=== PATIENT | male | born 1960 | race African-American/Black ===

== ENCOUNTER 2017-04-09 14:24 | Emergency (ER) | payer MEDICAID ==
[~2017-04-09] VITALS: Ht 172.7 cm; Wt 68.0 kg
[2017-04-09 15:00] LABS: BASOPHILS % 1.1 % (0.0-2.0); EOSINOPHILS % 1.2 % (0.0-5.0); HEMATOCRIT. 38.9 % (42.0-52.0); HEMOGLOBIN. 12.7 g/dL (14.0-18.0); LYMPHOCYTES % 15.2 % (20.0-50.0); MEAN CORPUSCULAR VOLUME 86.1 fL (80.0-94.0); MEAN PLATELET VOLUME 10.3 fl (7.4-10.4); MONOCYTES % 6.3 % (2.0-8.0); NEUTROPHILS % 76.2 % (40.0-76.0); PLATELET 309 x1000/uL (130-400); RED BLOOD CELL COUNT 4.52 mill/uL (4.7-6.1); RED CELL DISTRIBUTION WIDTH 13.5 % (11.6-14.6)
[2017-04-09 15:04] LABS: BG BASE EXCESS 1.9 mmol/L (-2.0-2.0); BG CARBOXYHEMOGLOBIN 0.6 % (0.5-1.5); BG DEOXYHEMOGLOBIN 0.3 % (0.0-5.0); BG FRACTION INSPIRED OXYGEN 98; BG HCO3 ACT 27.5 mmol/L (22.0-26.0); BG METHEMOGLOBIN 0.5 % (0.0-1.5); BG OXYGEN SATURATION 99.7 % (92.0-98.5); BG OXYHEMOGLOBIN 98.6 % (94.0-97.0); BG PCO2 47.2 mmHg (35.0-45.0); BG PH 7.384 (7.350-7.450); BG PO2 407.9 mmHg (75.0-100.0); BG SAMPLE SITE RIGHT BRACHIAL; BG TOTAL HEMOGLOBIN 13.8 g/dL (12.0-18.0); BG VENT MODE MASK - TRACH
[2017-04-09 15:08] LABS: INR 1.1; PROTHROMBIN TIME 11.4 sec (9.4-11.6)
[2017-04-09 15:14] LABS: CARBON DIOXIDE 29 mEq/L (21-32); CHLORIDE 101 mEq/L (98-107); TROPONIN I < 0.02 ng/mL (0.00-0.04)
[2017-04-09] MEDS ORDERED: IPRATROPIUM/ALBUTEROL 0.5-3(2.5)MG/3ML NEB HHN ONE (15:30)
[2017-04-09] MEDS ORDERED: IPRATROPIUM/ALBUTEROL 0.5-3(2.5)MG/3ML NEB ONE (15:45)
[2017-04-09 20:35] VITALS: BP 136/84
== END 2017-04-09 21:40 ==
LOC: ER 14:42
DX: T17.590A Other foreign object in bronchus causing asphyxiation, initial encounter (principal); R06.03 Acute respiratory distress; R00.0 Tachycardia, unspecified; X58.XXXA Exposure to other specified factors, initial encounter; Y93.89 Activity, other specified; Y92.89 Other specified places as the place of occurrence of the external cause; R94.31 Abnormal electrocardiogram [ECG] [EKG]; J44.9 Chronic obstructive pulmonary disease, unspecified; I10 Essential (primary) hypertension; E11.9 Type 2 diabetes mellitus without complications; E78.00 Pure hypercholesterolemia, unspecified; K21.9 Gastro-esophageal reflux disease without esophagitis; Z86.73 Personal history of transient ischemic attack (TIA), and cerebral infarction without residual deficits; Z88.0 Allergy status to penicillin
CPT/HCPCS: 36415; 36600; 71045; 80053; 82375; 82805; 83880; 84484; 85025; 85610; 85730; 93005; 94640; 99291; J7620

== ENCOUNTER 2019-02-24 14:29 | Inpatient (IN) | payer MEDICAID, OTHER ==
[~2019-02-24] VITALS: Ht 175.3 cm; Wt 94.8 kg
[2019-02-24] VITALS (9 sets, daily range): BP systolic 83–109; BP diastolic 49–62
[2019-02-24] MEDS ORDERED: SODIUM CHLORIDE 0.9% 1,000 ML IV ONE ×2 (14:40→15:30)
[2019-02-24] MEDS ORDERED: LEVOFLOXACIN 750MG PREMIX 150 ML IV ONE (14:45)
[2019-02-24] MEDS ORDERED: VANCOMYCIN 1 G PREMIX 200 ML IV ONE (14:45)
[2019-02-24] MEDS ORDERED: SODIUM BICARBONATE 4% (2.4MEQ) 5ML VIAL IV ONE (15:21)
[2019-02-24] MEDS ORDERED: LIDOCAINE HCL 1% 20ML VIAL (Pyxis) INJ ONE (15:21)
[2019-02-24] MEDS: SODIUM CHLORIDE 0.9% 100 ML IV ONE ×3 (15:30→18:22)
[2019-02-24] MEDS ORDERED: ALBUTEROL (0.083%) 2.5MG/3ML NEB HHN ONE (15:30)
[2019-02-24] MEDS: SODIUM CHLORIDE 0.9% 500 ML IV ONE ×2 (15:30→18:22)
[2019-02-24 15:32] LABS: BG BASE EXCESS 1.3 mmol/L (-2.0-2.0); BG CARBOXYHEMOGLOBIN 0.3 % (0.5-1.5); BG FRACTION INSPIRED OXYGEN 100; BG HCO3 ACT 26.8 mmol/L (22.0-26.0); BG METHEMOGLOBIN 0.2 % (0.0-1.5); BG OXYHEMOGLOBIN 91.5 % (94.0-97.0); BG PCO2 46.4 mmHg (35.0-45.0); BG SAMPLE SITE RIGHT RADIAL; BG TIDAL VOLUME(mL) 500 mL; BG TOTAL HEMOGLOBIN 12.1 g/dL (12.0-18.0); BG VENT MODE VENT - A/C; BG VENT RATE 14 set
[2019-02-24 15:40] LABS: BASOPHILS % 0.6 % (0.0-2.0); EOSINOPHILS % 0.2 % (0.0-5.0); HEMATOCRIT. 35.9 % (42.0-52.0); HEMOGLOBIN. 11.8 g/dL (14.0-18.0); LYMPHOCYTES % 12.1 % (20.0-50.0); MEAN CORPUSCULAR HEMOGLOBIN 27.4 pg (28.0-32.0); MEAN CORPUSCULAR VOLUME 83.4 fL (80.0-94.0); MEAN PLATELET VOLUME 11.6 fl (7.4-10.4); MONOCYTES % 10.9 % (2.0-8.0); NEUTROPHILS % 76.2 % (40.0-76.0); PLATELET 202 x1000/uL (130-400); RED BLOOD CELL COUNT 4.31 mill/uL (4.7-6.1); RED CELL DISTRIBUTION WIDTH 15.7 % (11.6-14.6)
[2019-02-24 15:45] LABS: CHLORIDE 90 mEq/L (98-107)
[2019-02-24 15:50] LABS: INR 1.2; PROTHROMBIN TIME 11.9 sec (9.6-11.0)
[2019-02-24] MEDS ORDERED: IPRATROPIUM/ALBUTEROL 0.5-3(2.5)MG/3ML NEB HHN PRN (17:15)
[2019-02-24] MEDS: SODIUM CHLORIDE 0.9% 1,000 ML IV SCH ×2 (18:10→22:49)
[2019-02-24] MEDS ORDERED: NOREPINEPHRINE 4MG/250ML PMX 250 ML IV PRN (20:45)
[2019-02-24] MEDS: ACETAMINOPHEN 325MG TABLET GT PRN (20:58)
[2019-02-24] MEDS: FAMOTIDINE 20MG/2ML VIAL IV SCH (22:48)
[2019-02-24] MEDS: METOCLOPRAMIDE 10MG/10 ML UDC GT SCH (22:48)
[2019-02-24] MEDS ORDERED: VANCOMYCIN 1 G PREMIX 200 ML IV NR (23:30)
[2019-02-25] VITALS (75 sets, daily range): BP systolic 69–151; BP diastolic 35–93
[2019-02-25] MEDS ORDERED: LIDOCAINE HCL 1% 20ML VIAL (Pyxis) INJ ONE (08:47)
[2019-02-25 08:48] LABS: BASOPHILS % 0.3 % (0.0-2.0); EOSINOPHILS % 0.2 % (0.0-5.0); HEMATOCRIT. 27.8 % (42.0-52.0); HEMOGLOBIN. 9.2 g/dL (14.0-18.0); LYMPHOCYTES % 7.6 % (20.0-50.0); MEAN CORPUSCULAR HEMOGLOBIN 27.5 pg (28.0-32.0); MEAN CORPUSCULAR VOLUME 83.6 fL (80.0-94.0); MONOCYTES % 12.7 % (2.0-8.0); NEUTROPHILS % 79.2 % (40.0-76.0); RED BLOOD CELL COUNT 3.33 mill/uL (4.7-6.1); RED CELL DISTRIBUTION WIDTH 15.6 % (11.6-14.6)
[2019-02-25] MEDS ORDERED: METOCLOPRAMIDE HCL 10MG TABLET GT ONE (09:00)
[2019-02-25 09:08] LABS: PHOSPHORUS 3.4 mg/dL (2.5-4.9)
[2019-02-25] MEDS ORDERED: HEPARIN 1000 UNITS/ML 10ML ONE (09:24)
[2019-02-25 09:26] LABS: BG BASE EXCESS -0.5 mmol/L (-2.0-2.0); BG CARBOXYHEMOGLOBIN 0.2 % (0.5-1.5); BG DEOXYHEMOGLOBIN 1.1 % (0.0-5.0); BG FRACTION INSPIRED OXYGEN 100; BG HCO3 ACT 24.2 mmol/L (22.0-26.0); BG METHEMOGLOBIN 0.3 % (0.0-1.5); BG OXYGEN SATURATION 98.9 % (92.0-98.5); BG OXYHEMOGLOBIN 98.4 % (94.0-97.0); BG PCO2 40.3 mmHg (35.0-45.0); BG PH 7.397 (7.350-7.450); BG PO2 136.4 mmHg (75.0-100.0); BG SAMPLE SITE RIGHT RADIAL; BG TIDAL VOLUME(mL) 500 mL; BG TOTAL HEMOGLOBIN 11.2 g/dL (12.0-18.0); BG VENT MODE VENT - A/C; BG VENT RATE 14 set
[2019-02-25] MEDS: METOCLOPRAMIDE 10MG/10 ML UDC GT SCH ×3 (10:04→18:08)
[2019-02-25] MEDS ORDERED: AZTREONAM 1 G in DEXTROSE 5% WATER 50 ML IV SCH ×2 (10:15→11:00)
[2019-02-25] MEDS ORDERED: PHENYLEPHRINE 20 MG in DEXT 5% WATER 248 ML IV PRN (10:30)
[2019-02-25 10:37] LABS: BG BASE EXCESS 1.5 mmol/L (-2.0-2.0); BG CARBOXYHEMOGLOBIN 0.1 % (0.5-1.5); BG DEOXYHEMOGLOBIN 1.7 % (0.0-5.0); BG FRACTION INSPIRED OXYGEN 100; BG HCO3 ACT 26.5 mmol/L (22.0-26.0); BG METHEMOGLOBIN 0.3 % (0.0-1.5); BG OXYGEN SATURATION 98.3 % (92.0-98.5); BG OXYHEMOGLOBIN 97.9 % (94.0-97.0); BG PCO2 43.3 mmHg (35.0-45.0); BG PH 7.405 (7.350-7.450); BG PO2 117.1 mmHg (75.0-100.0); BG SAMPLE SITE RIGHT RADIAL; BG TIDAL VOLUME(mL) 500 mL; BG TOTAL HEMOGLOBIN 11.4 g/dL (12.0-18.0); BG VENT MODE VENT - A/C; BG VENT RATE 14 set
[2019-02-25] MEDS: METRONIDAZOLE 500 MG PREMIX 100 ML IV SCH ×2 (11:06→18:07)
[2019-02-25] MEDS: MORPHINE SULFATE 2 MG/ML CPJ (NOT FOR IM USE) IV PRN (12:56)
[2019-02-25] MEDS: BUDESONIDE 0.5MG/2ML NEB HHN SCH ×2 (13:21→20:09)
[2019-02-25] MEDS: IPRATROPIUM/ALBUTEROL 0.5-3(2.5)MG/3ML NEB HHN SCH ×2 (13:21→20:08)
[2019-02-25] MEDS ORDERED: HEPARIN SODIUM 1,000 UNIT/1ML VIAL IV SCH (14:15)
[2019-02-25 16:10] LABS: CLARITY URINE CLOUDY (CLEAR); COLOR URINE YELLOW (YELLOW); KETONES URINE NEGATIVE (NEGATIVE); LEUKOCYTE ESTERASE URINE TRACE (NEGATIVE); NITRITE URINE NEGATIVE (NEGATIVE); OCCULT BLOOD URINE 2+ (NEGATIVE); PROTEIN URINE 1+ (NEGATIVE); SPECIFIC GRAVITY URINE 1.016 (1.005-1.030); UROBILINOGEN URINE 0.2 E.U./dL (0.2-1.0)
[2019-02-25] MEDS: AZTREONAM 500MG in DEXTROSE 5% WATER 50ML IV SCH ×2 (16:33→21:00)
[2019-02-25 17:02] LABS: MEAN PLATELET VOLUME 12.4 fl (7.4-10.4); PLATELET 165 x1000/uL (130-400)
[2019-02-25] MEDS: FAMOTIDINE 20MG/2ML VIAL IV SCH (21:00)
[2019-02-26] VITALS (74 sets, daily range): BP systolic 86–137; BP diastolic 43–98
[2019-02-26] MEDS: SODIUM CHLORIDE 0.9% 1,000 ML IV SCH ×2 (00:12→23:00)
[2019-02-26] MEDS: METRONIDAZOLE 500 MG PREMIX 100 ML IV SCH ×2 (01:19→08:52)
[2019-02-26] MEDS: IPRATROPIUM/ALBUTEROL 0.5-3(2.5)MG/3ML NEB HHN SCH ×4 (02:01→20:23)
[2019-02-26] MEDS: NOREPINEPHRINE 16 MG in DEXT 5% WATER 234 ML IV PRN (02:08)
[2019-02-26 05:32] LABS: BASOPHILS % 0.2 % (0.0-2.0); EOSINOPHILS % 0.6 % (0.0-5.0); HEMATOCRIT. 29.6 % (42.0-52.0); HEMOGLOBIN. 9.7 g/dL (14.0-18.0); LYMPHOCYTES % 8.9 % (20.0-50.0); MEAN CORPUSCULAR VOLUME 82.2 fL (80.0-94.0); MEAN PLATELET VOLUME 11.1 fl (7.4-10.4); NEUTROPHILS % 79.3 % (40.0-76.0); PLATELET 214 x1000/uL (130-400)
[2019-02-26 05:35] LABS: CHLORIDE 105 mEq/L (98-107)
[2019-02-26] MEDS: AZTREONAM 500MG in DEXTROSE 5% WATER 50ML IV SCH (05:40)
[2019-02-26] MEDS: ACETYLCYSTEINE 100MG/ML 10% VIAL 4ML INH SCH (08:45)
[2019-02-26] MEDS: METOCLOPRAMIDE 10MG/10 ML UDC GT SCH ×3 (08:52→17:49)
[2019-02-26] MEDS: BUDESONIDE 0.5MG/2ML NEB HHN SCH ×2 (08:55→20:23)
[2019-02-26] MEDS ORDERED: LEVOFLOXACIN 500MG PREMIX 100 ML IV SCH ×2 (09:00→11:00)
[2019-02-26] MEDS ORDERED: POTASSIUM PHOS,M-BASIC-D-BASIC 20 MMOL in DEXT 5% WATER 243.3333 ML IV SCH (11:00)
[2019-02-26] MEDS ORDERED: VANCOMYCIN 1250MG in DEXTROSE 5% WATER 250ML IV NR (12:00)
[2019-02-26] MEDS: MEROPENEM 500 MG in SODIUM CHLORIDE 0.9% 50 ML IV SCH (14:29)
[2019-02-26] MEDS: VANCOMYCIN HCL 1000 MG/20 ML ORAL GT SCH (17:50)
[2019-02-26] MEDS: LACTOBACILLUS GG CAPSULE PEG SCH (17:50)
[2019-02-26] MEDS: FAMOTIDINE 20MG/2ML VIAL IV SCH (22:09)
[2019-02-26] MEDS: ACETAMINOPHEN 325MG TABLET GT PRN (22:10)
[2019-02-27] VITALS (81 sets, daily range): BP systolic 96–143; BP diastolic 43–88
[2019-02-27] MEDS: ACETYLCYSTEINE 100MG/ML 10% VIAL 4ML INH SCH ×3 (00:16→14:51)
[2019-02-27] MEDS: IPRATROPIUM/ALBUTEROL 0.5-3(2.5)MG/3ML NEB HHN SCH ×5 (02:02→20:37)
[2019-02-27 05:05] LABS: BASOPHILS % 0.4 % (0.0-2.0); EOSINOPHILS % 2.2 % (0.0-5.0); HEMATOCRIT. 28.8 % (42.0-52.0); HEMOGLOBIN. 9.6 g/dL (14.0-18.0); LYMPHOCYTES % 9.7 % (20.0-50.0); MEAN CORPUSCULAR HEMOGLOBIN 27.5 pg (28.0-32.0); MEAN CORPUSCULAR VOLUME 82.6 fL (80.0-94.0); MEAN PLATELET VOLUME 10.2 fl (7.4-10.4); MONOCYTES % 11.2 % (2.0-8.0); NEUTROPHILS % 76.5 % (40.0-76.0); PLATELET 211 x1000/uL (130-400); RED BLOOD CELL COUNT 3.49 mill/uL (4.7-6.1); RED CELL DISTRIBUTION WIDTH 14.9 % (11.6-14.6)
[2019-02-27 05:18] LABS: CHLORIDE 110 mEq/L (98-107)
[2019-02-27 05:27] LABS: PHOSPHORUS 2.8 mg/dL (2.5-4.9)
[2019-02-27] MEDS: VANCOMYCIN HCL 1000 MG/20 ML ORAL GT SCH ×4 (06:00→18:35)
[2019-02-27 08:04] LABS: BG BASE EXCESS 4.4 mmol/L (-2.0-2.0); BG CARBOXYHEMOGLOBIN 0.3 % (0.5-1.5); BG DEOXYHEMOGLOBIN 1.8 % (0.0-5.0); BG FRACTION INSPIRED OXYGEN 60; BG HCO3 ACT 28.2 mmol/L (22.0-26.0); BG METHEMOGLOBIN 0.2 % (0.0-1.5); BG OXYGEN SATURATION 98.2 % (92.0-98.5); BG OXYHEMOGLOBIN 97.7 % (94.0-97.0); BG PCO2 39.1 mmHg (35.0-45.0); BG PH 7.476 (7.350-7.450); BG PO2 114.4 mmHg (75.0-100.0); BG SAMPLE SITE RIGHT RADIAL; BG TIDAL VOLUME(mL) 500 mL; BG TOTAL HEMOGLOBIN 10.3 g/dL (12.0-18.0); BG VENT MODE VENT - A/C; BG VENT RATE 14 set
[2019-02-27] MEDS: BUDESONIDE 0.5MG/2ML NEB HHN SCH (08:08)
[2019-02-27] MEDS: ACETAMINOPHEN 325MG TABLET GT PRN ×2 (09:02→12:52)
[2019-02-27] MEDS: LACTOBACILLUS GG CAPSULE PEG SCH (10:22)
[2019-02-27] MEDS: METOCLOPRAMIDE 10MG/10 ML UDC GT SCH ×3 (10:22→18:35)
[2019-02-27] MEDS: POTASSIUM CHLORIDE INJ 40 MEQ in DEXT 5%/0.2% NACL 1,000 ML IV SCH (11:27)
[2019-02-27] MEDS: NOREPINEPHRINE 16 MG in DEXT 5% WATER 234 ML IV PRN (11:28)
[2019-02-27] MEDS: MEROPENEM 500 MG in SODIUM CHLORIDE 0.9% 50 ML IV SCH (15:27)
[2019-02-27] MEDS: FAMOTIDINE 20MG/2ML VIAL IV SCH (21:29)
[2019-02-28] VITALS (69 sets, daily range): BP systolic 88–139; BP diastolic 47–84
[2019-02-28] MEDS: IPRATROPIUM/ALBUTEROL 0.5-3(2.5)MG/3ML NEB HHN SCH ×4 (00:22→20:56)
[2019-02-28] MEDS: ACETYLCYSTEINE 100MG/ML 10% VIAL 4ML INH SCH ×2 (00:23→08:45)
[2019-02-28] MEDS: VANCOMYCIN HCL 1000 MG/20 ML ORAL GT SCH ×4 (00:29→18:00)
[2019-02-28 05:44] LABS: BASOPHILS % 0.6 % (0.0-2.0); EOSINOPHILS % 3.6 % (0.0-5.0); HEMATOCRIT. 30.1 % (42.0-52.0); LYMPHOCYTES % 13.2 % (20.0-50.0); MEAN CORPUSCULAR HEMOGLOBIN 27.6 pg (28.0-32.0); MEAN CORPUSCULAR VOLUME 82.9 fL (80.0-94.0); MONOCYTES % 11.2 % (2.0-8.0); NEUTROPHILS % 71.4 % (40.0-76.0); PLATELET 217 x1000/uL (130-400); RED BLOOD CELL COUNT 3.63 mill/uL (4.7-6.1); RED CELL DISTRIBUTION WIDTH 14.9 % (11.6-14.6)
[2019-02-28 05:47] LABS: CHLORIDE 110 mEq/L (98-107)
[2019-02-28 06:01] LABS: PHOSPHORUS 2.7 mg/dL (2.5-4.9)
[2019-02-28] MEDS: POTASSIUM CHLORIDE INJ 40 MEQ in DEXT 5%/0.2% NACL 1,000 ML IV SCH (06:48)
[2019-02-28 08:50] LABS: BG BASE EXCESS 4.1 mmol/L (-2.0-2.0); BG CARBOXYHEMOGLOBIN 0.1 % (0.5-1.5); BG DEOXYHEMOGLOBIN 3.5 % (0.0-5.0); BG FRACTION INSPIRED OXYGEN 50; BG HCO3 ACT 27.8 mmol/L (22.0-26.0); BG METHEMOGLOBIN 0.2 % (0.0-1.5); BG OXYGEN SATURATION 96.5 % (92.0-98.5); BG OXYHEMOGLOBIN 96.2 % (94.0-97.0); BG PCO2 37.9 mmHg (35.0-45.0); BG PH 7.483 (7.350-7.450); BG PO2 82.4 mmHg (75.0-100.0); BG PRESSURE SUPPORT 12; BG SAMPLE SITE RIGHT RADIAL; BG TIDAL VOLUME(mL) 500 mL; BG TOTAL HEMOGLOBIN 10.2 g/dL (12.0-18.0); BG VENT MODE VENT - SIMV; BG VENT RATE 8 set
[2019-02-28] MEDS: LACTOBACILLUS GG CAPSULE PEG SCH (09:01)
[2019-02-28] MEDS: METOCLOPRAMIDE 10MG/10 ML UDC GT SCH ×3 (09:01→17:00)
[2019-02-28] MEDS: ACETAMINOPHEN 325MG TABLET GT PRN ×2 (09:48→20:39)
[2019-02-28] MEDS: MORPHINE SULFATE 2 MG/ML CPJ (NOT FOR IM USE) IV PRN (09:49)
[2019-02-28] MEDS: LORAZEPAM 2MG/ML CPJ IV PRN (14:23)
[2019-02-28] MEDS ORDERED: MAGNESIUM 2 G PREMIX 50 ML IV NR (14:30)
[2019-02-28] MEDS: MEROPENEM 500 MG in SODIUM CHLORIDE 0.9% 50 ML IV SCH (15:00)
[2019-02-28] MEDS: FAMOTIDINE 20MG/2ML VIAL IV SCH (20:39)
[2019-03-01] VITALS (23 sets, daily range): BP systolic 95–125; BP diastolic 54–77
[2019-03-01] MEDS: VANCOMYCIN HCL 1000 MG/20 ML ORAL GT SCH ×4 (00:08→18:03)
[2019-03-01] MEDS: ACETYLCYSTEINE 100MG/ML 10% VIAL 4ML INH SCH ×3 (00:53→16:33)
[2019-03-01] MEDS: IPRATROPIUM/ALBUTEROL 0.5-3(2.5)MG/3ML NEB HHN SCH ×7 (00:53→19:58)
[2019-03-01] MEDS: MORPHINE SULFATE 2 MG/ML CPJ (NOT FOR IM USE) IV PRN ×2 (01:15→03:34)
[2019-03-01] MEDS: LORAZEPAM 2MG/ML CPJ IV PRN ×2 (03:27→23:14)
[2019-03-01] MEDS: POTASSIUM CHLORIDE INJ 40 MEQ in DEXT 5%/0.2% NACL 1,000 ML IV SCH (05:18)
[2019-03-01 05:24] LABS: BASOPHILS % 0.5 % (0.0-2.0); EOSINOPHILS % 4.4 % (0.0-5.0); HEMOGLOBIN. 9.5 g/dL (14.0-18.0); LYMPHOCYTES % 18.4 % (20.0-50.0); MEAN CORPUSCULAR HEMOGLOBIN 27.2 pg (28.0-32.0); MEAN CORPUSCULAR VOLUME 83.2 fL (80.0-94.0); MEAN PLATELET VOLUME 9.9 fl (7.4-10.4); NEUTROPHILS % 66.7 % (40.0-76.0); PLATELET 246 x1000/uL (130-400); RED BLOOD CELL COUNT 3.49 mill/uL (4.7-6.1); RED CELL DISTRIBUTION WIDTH 14.8 % (11.6-14.6)
[2019-03-01 05:29] LABS: CHLORIDE 109 mEq/L (98-107)
[2019-03-01 05:37] LABS: PHOSPHORUS 3.6 mg/dL (2.5-4.9)
[2019-03-01] MEDS: LACTOBACILLUS GG CAPSULE PEG SCH (08:43)
[2019-03-01] MEDS: METOCLOPRAMIDE 10MG/10 ML UDC GT SCH ×3 (08:43→18:03)
[2019-03-01] MEDS: MEROPENEM 500 MG in SODIUM CHLORIDE 0.9% 50 ML IV SCH (15:33)
[2019-03-01] MEDS: FAMOTIDINE 20MG/2ML VIAL IV SCH (20:31)
[2019-03-02] VITALS (22 sets, daily range): BP systolic 89–150; BP diastolic 46–90
[2019-03-02] MEDS: VANCOMYCIN HCL 1000 MG/20 ML ORAL GT SCH ×4 (00:04→17:58)
[2019-03-02] MEDS: POTASSIUM CHLORIDE INJ 40 MEQ in DEXT 5%/0.2% NACL 1,000 ML IV SCH (00:59)
[2019-03-02] MEDS: IPRATROPIUM/ALBUTEROL 0.5-3(2.5)MG/3ML NEB HHN SCH ×3 (01:51→20:46)
[2019-03-02] MEDS: ACETYLCYSTEINE 100MG/ML 10% VIAL 4ML INH SCH ×2 (01:51→07:53)
[2019-03-02 05:21] LABS: BASOPHILS % 0.5 % (0.0-2.0); EOSINOPHILS % 5.7 % (0.0-5.0); HEMATOCRIT. 27.4 % (42.0-52.0); HEMOGLOBIN. 8.9 g/dL (14.0-18.0); MEAN CORPUSCULAR VOLUME 83.3 fL (80.0-94.0); MEAN PLATELET VOLUME 9.8 fl (7.4-10.4); MONOCYTES % 9.3 % (2.0-8.0); NEUTROPHILS % 68.5 % (40.0-76.0); PLATELET 255 x1000/uL (130-400); RED BLOOD CELL COUNT 3.28 mill/uL (4.7-6.1); RED CELL DISTRIBUTION WIDTH 14.7 % (11.6-14.6)
[2019-03-02 05:28] LABS: CHLORIDE 109 mEq/L (98-107)
[2019-03-02 05:40] LABS: PHOSPHORUS 3.3 mg/dL (2.5-4.9)
[2019-03-02] MEDS: LACTOBACILLUS GG CAPSULE PEG SCH (08:22)
[2019-03-02] MEDS: METOCLOPRAMIDE 10MG/10 ML UDC GT SCH ×3 (08:22→17:58)
[2019-03-02 08:43] LABS: BG BASE EXCESS -8.3 mmol/L (-2.0-2.0); BG CARBOXYHEMOGLOBIN 1.1 % (0.5-1.5); BG DEOXYHEMOGLOBIN 4.1 % (0.0-5.0); BG FRACTION INSPIRED OXYGEN 50; BG HCO3 ACT 17.3 mmol/L (22.0-26.0); BG METHEMOGLOBIN 0.4 % (0.0-1.5); BG OXYGEN SATURATION 95.8 % (92.0-98.5); BG OXYHEMOGLOBIN 94.4 % (94.0-97.0); BG PCO2 35.8 mmHg (35.0-45.0); BG PH 7.303 (7.350-7.450); BG PO2 87.6 mmHg (75.0-100.0); BG PRESSURE SUPPORT 12; BG SAMPLE SITE RIGHT RADIAL; BG TIDAL VOLUME(mL) 500 mL; BG TOTAL HEMOGLOBIN 7.7 g/dL (12.0-18.0); BG VENT MODE VENT - SIMV; BG VENT RATE 8 set
[2019-03-02 10:21] LABS: CHLORIDE 112 mEq/L (98-107)
[2019-03-02] MEDS: MEROPENEM 500 MG in SODIUM CHLORIDE 0.9% 50 ML IV SCH (16:12)
[2019-03-02] MEDS: FAMOTIDINE 20MG/2ML VIAL IV SCH (20:06)
[2019-03-03] VITALS (24 sets, daily range): BP systolic 96–140; BP diastolic 54–95
[2019-03-03] MEDS: ACETYLCYSTEINE 100MG/ML 10% VIAL 4ML INH SCH ×2 (02:08→08:20)
[2019-03-03] MEDS: IPRATROPIUM/ALBUTEROL 0.5-3(2.5)MG/3ML NEB HHN SCH ×5 (02:08→20:43)
[2019-03-03 05:58] LABS: BASOPHILS % 0.7 % (0.0-2.0); EOSINOPHILS % 4.9 % (0.0-5.0); HEMATOCRIT. 27.2 % (42.0-52.0); MEAN CORPUSCULAR HEMOGLOBIN 27.5 pg (28.0-32.0); MEAN CORPUSCULAR VOLUME 83.2 fL (80.0-94.0); MEAN PLATELET VOLUME 9.5 fl (7.4-10.4); MONOCYTES % 7.9 % (2.0-8.0); NEUTROPHILS % 70.5 % (40.0-76.0); PLATELET 255 x1000/uL (130-400); RED BLOOD CELL COUNT 3.26 mill/uL (4.7-6.1); RED CELL DISTRIBUTION WIDTH 14.8 % (11.6-14.6)
[2019-03-03 06:08] LABS: CHLORIDE 113 mEq/L (98-107)
[2019-03-03] MEDS: LACTOBACILLUS GG CAPSULE PEG SCH (08:55)
[2019-03-03] MEDS: METOCLOPRAMIDE 10MG/10 ML UDC GT SCH ×3 (08:55→17:33)
[2019-03-03 10:14] LABS: BG BASE EXCESS 1.8 mmol/L (-2.0-2.0); BG CARBOXYHEMOGLOBIN 0.3 % (0.5-1.5); BG DEOXYHEMOGLOBIN 3.3 % (0.0-5.0); BG FRACTION INSPIRED OXYGEN 50; BG HCO3 ACT 25.6 mmol/L (22.0-26.0); BG METHEMOGLOBIN 0.7 % (0.0-1.5); BG OXYGEN SATURATION 96.7 % (92.0-98.5); BG OXYHEMOGLOBIN 95.7 % (94.0-97.0); BG PCO2 36.9 mmHg (35.0-45.0); BG PH 7.459 (7.350-7.450); BG PO2 91.9 mmHg (75.0-100.0); BG PRESSURE SUPPORT 12; BG SAMPLE SITE RIGHT RADIAL; BG TIDAL VOLUME(mL) 500 mL; BG TOTAL HEMOGLOBIN 9.5 g/dL (12.0-18.0); BG VENT MODE VENT - SIMV; BG VENT RATE 8 set
[2019-03-03] MEDS: VANCOMYCIN HCL 1000 MG/20 ML ORAL PO SCH ×2 (12:00→17:34)
[2019-03-03] MEDS ORDERED: MAGNESIUM 2 G PREMIX 50 ML IV NR (12:00)
[2019-03-03] MEDS: MEROPENEM 500 MG in SODIUM CHLORIDE 0.9% 50 ML IV SCH (17:33)
[2019-03-03] MEDS: FAMOTIDINE 20MG/2ML VIAL IV SCH (20:21)
[2019-03-04] VITALS (24 sets, daily range): BP systolic 90–155; BP diastolic 57–94
[2019-03-04] MEDS: VANCOMYCIN HCL 1000 MG/20 ML ORAL PO SCH ×5 (00:16→23:22)
[2019-03-04] MEDS: IPRATROPIUM/ALBUTEROL 0.5-3(2.5)MG/3ML NEB HHN SCH ×6 (00:39→20:22)
[2019-03-04] MEDS: LORAZEPAM 2MG/ML CPJ IV PRN (01:49)
[2019-03-04] MEDS: METOCLOPRAMIDE 10MG/10 ML UDC GT SCH ×4 (08:50→17:40)
[2019-03-04] MEDS: LACTOBACILLUS GG CAPSULE PEG SCH (08:50)
[2019-03-04 09:01] LABS: BG BASE EXCESS 2.3 mmol/L (-2.0-2.0); BG CARBOXYHEMOGLOBIN 0.1 % (0.5-1.5); BG DEOXYHEMOGLOBIN 6.2 % (0.0-5.0); BG FRACTION INSPIRED OXYGEN 40; BG HCO3 ACT 26.2 mmol/L (22.0-26.0); BG METHEMOGLOBIN 0.2 % (0.0-1.5); BG OXYGEN SATURATION 93.8 % (92.0-98.5); BG OXYHEMOGLOBIN 93.5 % (94.0-97.0); BG PCO2 37.6 mmHg (35.0-45.0); BG PH 7.461 (7.350-7.450); BG PO2 67.4 mmHg (75.0-100.0); BG PRESSURE SUPPORT 12; BG SAMPLE SITE RIGHT RADIAL; BG TIDAL VOLUME(mL) 500 mL; BG TOTAL HEMOGLOBIN 9.2 g/dL (12.0-18.0); BG VENT MODE VENT - SIMV; BG VENT RATE 8 set
[2019-03-04] MEDS: SODIUM CHLORIDE 0.45% 1,000 ML IV SCH ×2 (10:39→20:37)
[2019-03-04] MEDS: MEROPENEM 500 MG in SODIUM CHLORIDE 0.9% 50 ML IV SCH (14:25)
[2019-03-04] MEDS: FAMOTIDINE 20MG/2ML VIAL IV SCH (20:34)
[2019-03-05] VITALS (23 sets, daily range): BP systolic 91–162; BP diastolic 48–98
[2019-03-05] MEDS: ONDANSETRON HCL 4MG/2ML INJ IV PRN (00:11)
[2019-03-05] MEDS: LORAZEPAM 2MG/ML CPJ IV PRN (00:22)
[2019-03-05] MEDS: IPRATROPIUM/ALBUTEROL 0.5-3(2.5)MG/3ML NEB HHN SCH ×6 (00:40→20:38)
[2019-03-05 06:17] LABS: BASOPHILS % 0.8 % (0.0-2.0); EOSINOPHILS % 3.6 % (0.0-5.0); HEMATOCRIT. 29.2 % (42.0-52.0); HEMOGLOBIN. 9.2 g/dL (14.0-18.0); LYMPHOCYTES % 14.4 % (20.0-50.0); MEAN CORPUSCULAR HEMOGLOBIN 26.3 pg (28.0-32.0); MEAN CORPUSCULAR VOLUME 83.5 fL (80.0-94.0); MEAN PLATELET VOLUME 9.7 fl (7.4-10.4); MONOCYTES % 5.8 % (2.0-8.0); NEUTROPHILS % 75.4 % (40.0-76.0); PLATELET 283 x1000/uL (130-400); RED BLOOD CELL COUNT 3.49 mill/uL (4.7-6.1)
[2019-03-05 06:22] LABS: CHLORIDE 113 mEq/L (98-107)
[2019-03-05] MEDS: SODIUM CHLORIDE 0.45% 1,000 ML IV SCH ×2 (06:27→15:45)
[2019-03-05] MEDS: VANCOMYCIN HCL 1000 MG/20 ML ORAL PO SCH ×3 (06:27→17:48)
[2019-03-05 06:30] LABS: PHOSPHORUS 4.1 mg/dL (2.5-4.9)
[2019-03-05] MEDS: LACTOBACILLUS GG CAPSULE PEG SCH (10:05)
[2019-03-05] MEDS: METOCLOPRAMIDE 10MG/10 ML UDC GT SCH ×3 (10:05→17:00)
[2019-03-05] MEDS: MEROPENEM 500 MG in SODIUM CHLORIDE 0.9% 50 ML IV SCH (14:11)
[2019-03-05] MEDS ORDERED: SIMETHICONE 80MG TABLET CHEW GT PRN (15:45)
[2019-03-05] MEDS: FAMOTIDINE 20MG/2ML VIAL IV SCH (21:45)
[2019-03-06] VITALS (12 sets, daily range): BP systolic 111–157; BP diastolic 48–91
[2019-03-06] MEDS: IPRATROPIUM/ALBUTEROL 0.5-3(2.5)MG/3ML NEB HHN SCH ×6 (00:23→20:57)
[2019-03-06] MEDS: VANCOMYCIN HCL 1000 MG/20 ML ORAL PO SCH ×4 (00:51→17:47)
[2019-03-06] MEDS: SODIUM CHLORIDE 0.45% 1,000 ML IV SCH ×2 (00:51→11:45)
[2019-03-06] MEDS: ACETAMINOPHEN 325MG TABLET GT PRN (01:51)
[2019-03-06] MEDS: ONDANSETRON HCL 4MG/2ML INJ IV PRN ×2 (01:51→05:09)
[2019-03-06 05:45] LABS: BASOPHILS % 0.6 % (0.0-2.0); EOSINOPHILS % 3.2 % (0.0-5.0); LYMPHOCYTES % 13.8 % (20.0-50.0); MEAN CORPUSCULAR HEMOGLOBIN 26.7 pg (28.0-32.0); MEAN CORPUSCULAR VOLUME 82.6 fL (80.0-94.0); MEAN PLATELET VOLUME 9.9 fl (7.4-10.4); NEUTROPHILS % 77.4 % (40.0-76.0); PLATELET 329 x1000/uL (130-400); RED BLOOD CELL COUNT 3.76 mill/uL (4.7-6.1); RED CELL DISTRIBUTION WIDTH 14.6 % (11.6-14.6)
[2019-03-06 05:49] LABS: CHLORIDE 113 mEq/L (98-107)
[2019-03-06 05:55] LABS: PHOSPHORUS 3.8 mg/dL (2.5-4.9)
[2019-03-06] MEDS: LACTOBACILLUS GG CAPSULE PEG SCH (09:12)
[2019-03-06] MEDS: METOCLOPRAMIDE 10MG/10 ML UDC GT SCH (09:12)
[2019-03-06 09:31] LABS: BG BASE EXCESS -4.2 mmol/L (-2.0-2.0); BG CARBOXYHEMOGLOBIN 0.3 % (0.5-1.5); BG DEOXYHEMOGLOBIN 6.2 % (0.0-5.0); BG FRACTION INSPIRED OXYGEN 40; BG HCO3 ACT 19.6 mmol/L (22.0-26.0); BG METHEMOGLOBIN 0.3 % (0.0-1.5); BG OXYGEN SATURATION 93.8 % (92.0-98.5); BG OXYHEMOGLOBIN 93.2 % (94.0-97.0); BG PCO2 31.6 mmHg (35.0-45.0); BG PH 7.411 (7.350-7.450); BG PO2 70.7 mmHg (75.0-100.0); BG SAMPLE SITE RIGHT RADIAL; BG TIDAL VOLUME(mL) 500 mL; BG TOTAL HEMOGLOBIN 10.6 g/dL (12.0-18.0); BG VENT MODE VENT - A/C; BG VENT RATE 12 set
[2019-03-06] MEDS ORDERED: MAGNESIUM 2 G PREMIX 50 ML IV SCH (15:00)
[2019-03-06] MEDS: ACETYLCYSTEINE 100MG/ML 10% VIAL 4ML INH SCH (16:11)
[2019-03-06] MEDS: METOCLOPRAMIDE HCL 10MG/2ML VIAL IV SCH (17:47)
[2019-03-06] MEDS: FAMOTIDINE 20MG/2ML VIAL IV SCH (20:39)
[2019-03-07] VITALS (11 sets, daily range): BP systolic 95–141; BP diastolic 62–106
[2019-03-07] MEDS: METOCLOPRAMIDE HCL 10MG/2ML VIAL IV SCH ×4 (00:02→17:37)
[2019-03-07] MEDS: VANCOMYCIN HCL 1000 MG/20 ML ORAL PO SCH ×4 (00:02→17:37)
[2019-03-07] MEDS: ACETYLCYSTEINE 100MG/ML 10% VIAL 4ML INH SCH ×3 (00:47→16:34)
[2019-03-07] MEDS: IPRATROPIUM/ALBUTEROL 0.5-3(2.5)MG/3ML NEB HHN SCH ×6 (00:47→20:30)
[2019-03-07] MEDS: ONDANSETRON HCL 4MG/2ML INJ IV PRN (01:59)
[2019-03-07] MEDS: SODIUM CHLORIDE 0.45% 1,000 ML IV SCH (07:00)
[2019-03-07 08:33] LABS: CHLORIDE 112 mEq/L (98-107)
[2019-03-07 08:38] LABS: BASOPHILS % 0.7 % (0.0-2.0); EOSINOPHILS % 2.3 % (0.0-5.0); HEMATOCRIT. 26.6 % (42.0-52.0); HEMOGLOBIN. 8.7 g/dL (14.0-18.0); LYMPHOCYTES % 15.1 % (20.0-50.0); MEAN CORPUSCULAR HEMOGLOBIN 26.9 pg (28.0-32.0); MEAN CORPUSCULAR VOLUME 82.7 fL (80.0-94.0); MONOCYTES % 6.3 % (2.0-8.0); NEUTROPHILS % 75.6 % (40.0-76.0); PLATELET 328 x1000/uL (130-400); RED BLOOD CELL COUNT 3.22 mill/uL (4.7-6.1); RED CELL DISTRIBUTION WIDTH 14.8 % (11.6-14.6)
[2019-03-07 08:39] LABS: PHOSPHORUS 3.4 mg/dL (2.5-4.9)
[2019-03-07] MEDS: LACTOBACILLUS GG CAPSULE PEG SCH (09:52)
[2019-03-07 10:44] LABS: BG BASE EXCESS -2.7 mmol/L (-2.0-2.0); BG DEOXYHEMOGLOBIN 3.3 % (0.0-5.0); BG FRACTION INSPIRED OXYGEN 40; BG HCO3 ACT 21.1 mmol/L (22.0-26.0); BG METHEMOGLOBIN 0.3 % (0.0-1.5); BG OXYGEN SATURATION 96.7 % (92.0-98.5); BG OXYHEMOGLOBIN 96.4 % (94.0-97.0); BG PCO2 32.7 mmHg (35.0-45.0); BG PH 7.428 (7.350-7.450); BG SAMPLE SITE RIGHT RADIAL; BG TIDAL VOLUME(mL) 500 mL; BG TOTAL HEMOGLOBIN 9.3 g/dL (12.0-18.0); BG VENT MODE VENT - A/C; BG VENT RATE 12 set
[2019-03-07] MEDS: LORAZEPAM 2MG/ML CPJ IV PRN ×2 (14:16→21:03)
[2019-03-07] MEDS: FAMOTIDINE 20MG/2ML VIAL IV SCH (20:48)
[2019-03-08] VITALS (12 sets, daily range): BP systolic 101–141; BP diastolic 53–92
[2019-03-08] MEDS: IPRATROPIUM/ALBUTEROL 0.5-3(2.5)MG/3ML NEB HHN SCH ×6 (00:12→20:44)
[2019-03-08] MEDS: ACETYLCYSTEINE 100MG/ML 10% VIAL 4ML INH SCH ×3 (00:12→16:08)
[2019-03-08] MEDS: VANCOMYCIN HCL 1000 MG/20 ML ORAL PO SCH ×5 (00:20→23:17)
[2019-03-08] MEDS: METOCLOPRAMIDE HCL 10MG/2ML VIAL IV SCH ×5 (00:20→23:17)
[2019-03-08] MEDS: POTASSIUM CHLORIDE 20MEQ/PACKET GT SCH (08:57)
[2019-03-08] MEDS: LACTOBACILLUS GG CAPSULE PEG SCH (08:57)
[2019-03-08] MEDS ORDERED: MORPHINE SULFATE 2 MG/ML CPJ (NOT FOR IM USE) IV PRN (14:15)
[2019-03-08] MEDS: LORAZEPAM 2MG/ML CPJ IV PRN (16:28)
[2019-03-08] MEDS: FAMOTIDINE 20MG/2ML VIAL IV SCH (21:40)
[2019-03-09] VITALS (11 sets, daily range): BP systolic 102–145; BP diastolic 62–90
[2019-03-09] MEDS: IPRATROPIUM/ALBUTEROL 0.5-3(2.5)MG/3ML NEB HHN SCH ×6 (00:42→21:30)
[2019-03-09] MEDS: ACETYLCYSTEINE 100MG/ML 10% VIAL 4ML INH SCH ×3 (00:42→16:10)
[2019-03-09] MEDS: VANCOMYCIN HCL 1000 MG/20 ML ORAL PO SCH ×4 (05:16→23:16)
[2019-03-09] MEDS: METOCLOPRAMIDE HCL 10MG/2ML VIAL IV SCH ×4 (05:16→23:13)
[2019-03-09 06:36] LABS: BG BASE EXCESS -1.7 mmol/L (-2.0-2.0); BG CARBOXYHEMOGLOBIN 0.3 % (0.5-1.5); BG HCO3 ACT 22.5 mmol/L (22.0-26.0); BG METHEMOGLOBIN 0.3 % (0.0-1.5); BG OXYHEMOGLOBIN 95.4 % (94.0-97.0); BG PCO2 35.8 mmHg (35.0-45.0); BG PH 7.416 (7.350-7.450); BG PO2 84.8 mmHg (75.0-100.0); BG SAMPLE SITE RIGHT RADIAL; BG TIDAL VOLUME(mL) 500 mL; BG TOTAL HEMOGLOBIN 9.8 g/dL (12.0-18.0); BG VENT MODE VENT - SIMV; BG VENT RATE 6 set
[2019-03-09 06:51] LABS: BASOPHILS % 1.2 % (0.0-2.0); EOSINOPHILS % 3.2 % (0.0-5.0); HEMATOCRIT. 30.6 % (42.0-52.0); HEMOGLOBIN. 10.1 g/dL (14.0-18.0); MEAN CORPUSCULAR HEMOGLOBIN 27.3 pg (28.0-32.0); MEAN CORPUSCULAR VOLUME 82.8 fL (80.0-94.0); MEAN PLATELET VOLUME 9.8 fl (7.4-10.4); MONOCYTES % 8.4 % (2.0-8.0); NEUTROPHILS % 73.2 % (40.0-76.0); PLATELET 358 x1000/uL (130-400); RED BLOOD CELL COUNT 3.69 mill/uL (4.7-6.1)
[2019-03-09 07:31] LABS: CHLORIDE 113 mEq/L (98-107)
[2019-03-09 07:39] LABS: PHOSPHORUS 3.8 mg/dL (2.5-4.9)
[2019-03-09] MEDS: POTASSIUM CHLORIDE 20MEQ/PACKET GT SCH (08:48)
[2019-03-09] MEDS: LACTOBACILLUS GG CAPSULE PEG SCH (08:48)
[2019-03-09] MEDS ORDERED: MAGNESIUM 2 G PREMIX 50 ML IV SCH (10:00)
[2019-03-09] MEDS: LORAZEPAM 2MG/ML CPJ IV PRN ×2 (10:27→17:13)
[2019-03-09] MEDS: FAMOTIDINE 20MG/2ML VIAL IV SCH (20:57)
[2019-03-10] VITALS (12 sets, daily range): BP systolic 106–156; BP diastolic 47–83
[2019-03-10] MEDS: IPRATROPIUM/ALBUTEROL 0.5-3(2.5)MG/3ML NEB HHN SCH ×6 (01:13→20:17)
[2019-03-10] MEDS: ACETYLCYSTEINE 100MG/ML 10% VIAL 4ML INH SCH ×3 (01:13→15:49)
[2019-03-10 07:19] LABS: BASOPHILS % 0.9 % (0.0-2.0); EOSINOPHILS % 3.6 % (0.0-5.0); HEMATOCRIT. 30.6 % (42.0-52.0); HEMOGLOBIN. 9.9 g/dL (14.0-18.0); LYMPHOCYTES % 23.1 % (20.0-50.0); MEAN CORPUSCULAR HEMOGLOBIN 26.7 pg (28.0-32.0); MEAN CORPUSCULAR VOLUME 82.6 fL (80.0-94.0); MEAN PLATELET VOLUME 9.9 fl (7.4-10.4); MONOCYTES % 9.9 % (2.0-8.0); NEUTROPHILS % 62.5 % (40.0-76.0); PLATELET 411 x1000/uL (130-400); RED BLOOD CELL COUNT 3.71 mill/uL (4.7-6.1); RED CELL DISTRIBUTION WIDTH 15.6 % (11.6-14.6)
[2019-03-10] MEDS: VANCOMYCIN HCL 1000 MG/20 ML ORAL PO SCH ×3 (07:22→18:56)
[2019-03-10] MEDS: METOCLOPRAMIDE HCL 10MG/2ML VIAL IV SCH ×3 (07:22→18:56)
[2019-03-10 07:37] LABS: CHLORIDE 112 mEq/L (98-107)
[2019-03-10] MEDS ORDERED: POTASSIUM CHLORIDE 10MEQ TABLET SR PO SCH (09:00)
[2019-03-10] MEDS: LACTOBACILLUS GG CAPSULE PEG SCH (09:03)
[2019-03-10] MEDS: FAMOTIDINE 20MG/2ML VIAL IV SCH (21:11)
[2019-03-11] VITALS (12 sets, daily range): BP systolic 108–132; BP diastolic 44–81
[2019-03-11] MEDS: LORAZEPAM 2MG/ML CPJ IV PRN (00:04)
[2019-03-11] MEDS: VANCOMYCIN HCL 1000 MG/20 ML ORAL PO SCH ×4 (00:05→17:23)
[2019-03-11] MEDS: METOCLOPRAMIDE HCL 10MG/2ML VIAL IV SCH ×4 (00:05→17:22)
[2019-03-11] MEDS: ACETYLCYSTEINE 100MG/ML 10% VIAL 4ML INH SCH ×2 (00:37→08:25)
[2019-03-11] MEDS: IPRATROPIUM/ALBUTEROL 0.5-3(2.5)MG/3ML NEB HHN SCH ×6 (00:37→20:20)
[2019-03-11] MEDS: LACTOBACILLUS GG CAPSULE PEG SCH (08:22)
[2019-03-11] MEDS ORDERED: ACETAMINOPHEN 650MG/20.3ML UDC GT PRN (20:45)
[2019-03-11] MEDS: FAMOTIDINE 20MG/2ML VIAL IV SCH (21:36)
[2019-03-12] VITALS (11 sets, daily range): BP systolic 104–132; BP diastolic 66–79
[2019-03-12] MEDS: IPRATROPIUM/ALBUTEROL 0.5-3(2.5)MG/3ML NEB HHN SCH ×6 (00:21→21:03)
[2019-03-12] MEDS: METOCLOPRAMIDE HCL 10MG/2ML VIAL IV SCH ×4 (00:44→21:46)
[2019-03-12] MEDS: VANCOMYCIN HCL 1000 MG/20 ML ORAL PO SCH ×4 (00:45→18:13)
[2019-03-12] MEDS: ACETYLCYSTEINE 100MG/ML 10% VIAL 4ML INH SCH (08:54)
[2019-03-12] MEDS: ZINC SULFATE 220 MG ( 50 ) CAPSULE GT SCH (09:08)
[2019-03-12] MEDS: ASCORBIC ACID 500 MG TABLET GT SCH (09:09)
[2019-03-12] MEDS: LACTOBACILLUS GG CAPSULE PEG SCH (09:09)
[2019-03-12] MEDS: FAMOTIDINE 20MG/2ML VIAL IV SCH (21:46)
[2019-03-13] VITALS (12 sets, daily range): BP systolic 111–140; BP diastolic 44–85
[2019-03-13] MEDS: IPRATROPIUM/ALBUTEROL 0.5-3(2.5)MG/3ML NEB HHN SCH ×6 (00:32→21:01)
[2019-03-13] MEDS: METOCLOPRAMIDE HCL 10MG/2ML VIAL IV SCH ×3 (06:26→21:53)
[2019-03-13 06:36] LABS: CHLORIDE 111 mEq/L (98-107)
[2019-03-13 06:47] LABS: BASOPHILS % 0.9 % (0.0-2.0); HEMATOCRIT. 30.7 % (42.0-52.0); LYMPHOCYTES % 20.8 % (20.0-50.0); MEAN CORPUSCULAR HEMOGLOBIN 27.1 pg (28.0-32.0); MEAN CORPUSCULAR VOLUME 83.3 fL (80.0-94.0); MONOCYTES % 8.6 % (2.0-8.0); NEUTROPHILS % 66.7 % (40.0-76.0); PLATELET 397 x1000/uL (130-400); RED BLOOD CELL COUNT 3.68 mill/uL (4.7-6.1); RED CELL DISTRIBUTION WIDTH 15.4 % (11.6-14.6)
[2019-03-13 06:48] LABS: PHOSPHORUS 3.3 mg/dL (2.5-4.9)
[2019-03-13] MEDS: ZINC SULFATE 220 MG ( 50 ) CAPSULE GT SCH (09:14)
[2019-03-13] MEDS: LACTOBACILLUS GG CAPSULE PEG SCH (09:14)
[2019-03-13] MEDS: ASCORBIC ACID 500 MG TABLET GT SCH (09:14)
[2019-03-13] MEDS: FAMOTIDINE 20MG/2ML VIAL IV SCH (21:53)
[2019-03-14] VITALS (10 sets, daily range): BP systolic 101–122; BP diastolic 63–76
[2019-03-14] MEDS: IPRATROPIUM/ALBUTEROL 0.5-3(2.5)MG/3ML NEB HHN SCH ×5 (00:52→16:03)
[2019-03-14] MEDS: METOCLOPRAMIDE HCL 10MG/2ML VIAL IV SCH ×2 (06:50→14:23)
[2019-03-14] MEDS: LACTOBACILLUS GG CAPSULE PEG SCH (09:01)
[2019-03-14] MEDS: ASCORBIC ACID 500 MG TABLET GT SCH (09:01)
[2019-03-14] MEDS: ZINC SULFATE 220 MG ( 50 ) CAPSULE GT SCH (09:01)
== END 2019-03-14 18:37 | DRG 720 ==
LOC: ER 14:54 → MICUNO 16:44 → EDBEDREQ 16:48 → EDBEDREQTM 16:48 → ENRESERV 19:54 → EDBEDREQSVC 20:15 → ENRESERV 20:29 → 5EST 03-05 17:39
PROVIDERS: ADMIT Internal Medicine; ATTEND Internal Medicine
PROC: 5A1955Z Respiratory Ventilation, Greater than 96 Consecutive Hours (ICD-10-PCS; principal; 2019-02-24)
PROC: 02HV33Z Insertion of Infusion Device into Superior Vena Cava, Percutaneous Approach (ICD-10-PCS; 2019-02-24)
PROC: B548ZZA Ultrasonography of Superior Vena Cava, Guidance (ICD-10-PCS; 2019-02-24)
PROC: B54BZZA Ultrasonography of Right Lower Extremity Veins, Guidance (ICD-10-PCS; 2019-02-25)
PROC: 06HY33Z Insertion of Infusion Device into Lower Vein, Percutaneous Approach (ICD-10-PCS; 2019-02-25)
DX: A41.59 Other Gram-negative sepsis (principal); J96.21 Acute and chronic respiratory failure with hypoxia; E43 Unspecified severe protein-calorie malnutrition; J95.851 Ventilator associated pneumonia; J15.6 Pneumonia due to other Gram-negative bacteria; R65.21 Severe sepsis with septic shock; G82.50 Quadriplegia, unspecified; A04.72 Enterocolitis due to Clostridium difficile, not specified as recurrent; Z99.11 Dependence on respirator [ventilator] status; L89.153 Pressure ulcer of sacral region, stage 3; G93.40 Encephalopathy, unspecified; N17.9 Acute kidney failure, unspecified; Z93.0 Tracheostomy status; N18.9 Chronic kidney disease, unspecified; E87.1 Hypo-osmolality and hyponatremia; E78.5 Hyperlipidemia, unspecified; E11.22 Type 2 diabetes mellitus with diabetic chronic kidney disease; D64.9 Anemia, unspecified; J44.0 Chronic obstructive pulmonary disease with (acute) lower respiratory infection; E78.00 Pure hypercholesterolemia, unspecified; E83.39 Other disorders of phosphorus metabolism; E83.42 Hypomagnesemia; E87.0 Hyperosmolality and hypernatremia; E87.2 Acidosis; E87.6 Hypokalemia; K21.9 Gastro-esophageal reflux disease without esophagitis; R13.10 Dysphagia, unspecified; R47.02 Dysphasia; Y84.8 Other medical procedures as the cause of abnormal reaction of the patient, or of later complication, without mention of misadventure at the time of the procedure; K31.9 Disease of stomach and duodenum, unspecified; J44.1 Chronic obstructive pulmonary disease with (acute) exacerbation; Z16.12 Extended spectrum beta lactamase (ESBL) resistance; E11.40 Type 2 diabetes mellitus with diabetic neuropathy, unspecified; I12.9 Hypertensive chronic kidney disease with stage 1 through stage 4 chronic kidney disease, or unspecified chronic kidney disease; I25.10 Atherosclerotic heart disease of native coronary artery without angina pectoris; I69.365 Other paralytic syndrome following cerebral infarction, bilateral; Z82.49 Family history of ischemic heart disease and other diseases of the circulatory system; Z88.0 Allergy status to penicillin; Z93.1 Gastrostomy status; Z88.8 Allergy status to other drugs, medicaments and biological substances; Z79.899 Other long term (current) drug therapy; Z68.30 Body mass index [BMI] 30.0-30.9, adult
CPT/HCPCS: 36415; 36556; 36600; 71045; 76770; 76937; 80048; 80053; 80202; 81003; 82375; 82533; 82805; 82962; 83605; 83735; 83880; 83935; 84100; 84134; 84443; 84484; 85025; 87015; 87045; 87070; 87077; 87186; 87427; 87493; 93005; 94003; 94640; 96365; 99291; A6261; C1725; C1752; J1644; J1956; J2060; J2185; J2270; J2370; J2405; J2765; J3370; J3475; J3480; J3490; J7030; J7040; J7050; J7060; J7608; J7626; J8597; A4315